=== PATIENT | female | born 1965 | race Caucasian/White ===

== ENCOUNTER 2018-06-27 22:47 | Emergency (ER) | payer OTHER ==
[~2018-06-27] VITALS: Ht 172.7 cm; Wt 93.9 kg
[~2018-06-27 22:47] MED LIST: POLY33504 PO
[2018-06-27 22:58] VITALS: BP 119/83
[2018-06-27 23:29] LABS: Basophils # (auto) 0.1 uL; Basophils % (auto) 0.6 % (0.0-2.0); Eosinophils # (auto) 0.1 uL; Eosinophils % (auto) 1.5 % (0.0-7.0); Hematocrit 40.3 % (36.0-46.0); Hemoglobin 13.1 g/dL (12.2-16.2); Lymphocytes # (auto) 2.8 uL; Lymphocytes % (auto) 30.9 % (10.0-50.0); Mean Corpuscular Hemoglobin 28.5 pg (28.0-32.0); Mean Corpuscular Hgb Conc. 32.6 g/dL (32.0-36.0); Mean Corpuscular Volume 87.5 fL (80.0-100.0); Monocytes # (auto) 0.6 uL; Monocytes % (auto) 6.6 % (0.0-12.0); Neutrophils # (auto) 5.6 uL; Neutrophils % (auto) 60.4 % (37.0-80.0); Platelet Count (auto) 282 10^3/uL (140-450); Red Cell Distribution Width 13.8 % (11.8-14.3); White Blood Cell 9.2 10^3/uL (4.4-10.8)
[2018-06-27 23:45] LABS: Alanine Aminotransferase 24 U/L (13-56); Albumin 3.9 g/dL (3.4-5.0); Anion Gap 9 (5-15); Aspartate Aminotransferase 17 U/L (15-37); BUN/Creatinine Ratio 22.6; Blood Alcohol < 3.0 mg/dL (0-5); Blood Urea Nitrogen 19 mg/dL (7-18); Calcium 8.7 mg/dL (8.5-10.1); Carbon Dioxide 25 mmol/L (21-32); Chloride 108 mmol/L (98-107); GFR African American 91 mL/min; GFR Non-African American 75 mL/min; Glucose 126 mg/dL (74-106); Potassium 3.7 mmol/L (3.5-5.1); Sodium 142 mmol/L (136-145)
[2018-06-27 23:49] LABS: Alkaline Phosphatase 79 U/L (45-117); Bilirubin, Total 0.2 mg/dL (0.2-1.0); Total Protein 7.4 g/dL (6.4-8.2)
== END 2018-06-28 04:25 | disposition left against medical advice (07) ==
LOC: ER 22:47
DX: R47.81 Slurred speech (principal); Z53.21 Procedure and treatment not carried out due to patient leaving prior to being seen by health care provider
CPT/HCPCS: 36415; 80053; 80320; 85025